=== PATIENT | female | born 1985 | race Caucasian/White ===

== ENCOUNTER → 2018-01-21 | Outpatient (CLI) | payer BC ==
--- NOTE | 2018-01-21 17:29 | DIAGNOSTIC IMAGING REPORT ---
LEFT FOOT 3 VIEWS; LEFT HEEL 2 VIEWS CLINICAL HISTORY: Left foot and heel pain. FINDINGS: 3 views of the left foot with AP and lateral views of the left heel are obtained. No prior studies are available for comparison at the time of dictation. The skeletal structures appear osteopenic for age. No acute fracture is identified in the foot. There is no evidence of calcaneal fracture. There are large dorsal and plantar calcaneal enthesophytes. Small calcifications are seen in the course of the plantar fascia. Large degenerative spurs are seen along the dorsal aspect of the tarsal bones. There is soft tissue edema in the foot, greatest dorsally. 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 There is no radiographic evidence of Lisfranc injury. IMPRESSION: 1. Soft tissue swelling with no radiographic evidence of left foot fracture. 2. There is no radiographic evidence of calcaneal fracture. 3. Osteopenia, age advanced arthritic change, and large heel spurs as above. Electronically signed by: Geovany Singh M.D. 01/21/2018 5:28 PM Dictated Date/Time: 01/21/2018 5:26 PM
== END | disposition home or self-care (01) ==
LOC: C.RAD 16:45
PROVIDERS: ATTEND Nurse Practitioner
DX: M79.672 Pain in left foot (principal); M85.872 Other specified disorders of bone density and structure, left ankle and foot; M77.32 Calcaneal spur, left foot